=== PATIENT | male | born 1970 | race Caucasian/White ===

== ENCOUNTER 2020-04-09 01:23 | Emergency (ER) | payer OTHER, SELFPAY ==
[2020-04-09 01:33] VITALS: BP 136/83; PULSE 105; RESP 16; TEMP 37.1; O2SAT 96; BMI 31.6
--- NOTE | 2020-04-09 01:39 | XR_ITS ---
EXAMINATION: XR SHOULDER, RIGHT CLINICAL INFORMATION: Fall COMPARISON: None TECHNIQUE: Three views of the right shoulder. FINDINGS: There is no fracture or dislocation. The glenohumeral joint is well aligned. Widening of the acromioclavicular joint is unchanged. The visualized ribs are intact. The visualized lung is clear. XR/XR shoulder RT min 2V IMPRESSION: No acute fracture or malalignment.
--- NOTE | 2020-04-09 01:39 | XR_ITS ---
EXAMINATION: XR FOOT, RIGHT CLINICAL INFORMATION: Fall down 3 stairs COMPARISON: None TECHNIQUE: AP, lateral, and oblique views of the right foot. FINDINGS: There is no fracture or dislocation. Alignment is anatomic. Joint spaces are maintained. Cyst formation at the fifth metatarsal head may be degenerative. Small osteophytes at the first metatarsophalangeal joint. Small heel spurs. XR/XR foot RT min 3V IMPRESSION: No fracture or malalignment. Small heel spurs. Mild degenerative change.
--- NOTE | 2020-04-09 01:39 | XR_ITS ---
EXAMINATION: XR RIBS, RIGHT WITH CHEST XR THORACIC SPINE CLINICAL INFORMATION: Fall. COMPARISON: 01/18/2020 TECHNIQUE: PA view of the chest with 3 additional views of the right ribs. 2 views of the thoracic spine. FINDINGS: RIBS/chest: The lungs are well expanded. No consolidation, edema, or effusion. No pneumothorax. The cardiomediastinal silhouette is within normal limits. Chronic widening at the right acromioclavicular joint is noted. Dedicated right rib radiographs show no fracture or cortical disruption. Alignment is maintained. Thoracic spine: No acute fracture or subluxation. Mild scoliotic curvature. Vertebral body heights are maintained. Disc spaces are maintained. The paravertebral soft tissues are unremarkable. XR/XR ribs RT min 3V w CXR1V IMPRESSION: No fracture or malalignment involving the right ribs or the thoracic spine. Clear lungs.
--- NOTE | 2020-04-09 01:39 | XR_ITS ---
EXAMINATION: XR LUMBOSACRAL SPINE CLINICAL INFORMATION: Fall down 3 stairs COMPARISON: None TECHNIQUE: Three views of the lumbosacral spine. FINDINGS: There is no fracture or subluxation. Vertebral body height and alignment is maintained. Mild disc space narrowing of L4-L5. Remaining disc heights are maintained. The sacroiliac joints are symmetric. The sacrum appears intact. The bowel gas pattern is unremarkable. XR/XR lumbar spine 2-3V IMPRESSION: No fracture or malalignment.
--- NOTE | 2020-04-09 01:42 | ED_ITS ---
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 Patient reports walked outside, and slipped down 3 stairs, denies symptoms prior to fall including CP/SOB, lightheadedness / dizziness. Reports associated nausea now. Denies head trauma, LOC, vomiting, numbness /tingling, weakness, abdominal pain. Denies taking anticoagulation <WILLIAM Shi - Last Filed: 04/09/20 01:54 EDT> MD complaint: fall <WILLIAM Shi Last Filed: 04/09/20 01:54 EDT> Onset (ago): hour(s) <WILLIAM Shi - Last Filed: 04/09/20 01:54 EDT> Related Data Home Medications: Previous Rx's Medication Instructions Recorded acetaminophen [Tylenol Extra 500 mg PO Q6H PRN #20 tab 04/09/20 Strength] cyclobenzaprine 5 mg PO Q8H PRN 5 Days #14 tab 04/09/20 lidocaine [Lidoderm] 1 patch TOPICAL DAILY PRN #30 ea 04/09/20 MDD remove after 12 hours naproxen 500 mg PO BID PRN 10 Days #20 tab 04/09/20 <WILLIAM Shi Last Filed: 04/09/20 01:54 EDT> Allergies/Adverse Reactions: Allergies Allergy/AdvReac Type Severity Reaction Status Date / Time No Known Drug Allergies Allergy Mild NONE Verified 04/09/20 01:38 EDT [NO KNOWN DRUG ALLERGIES] <WILLIAM Shi - Last Filed: 04/09/20 01:54 EDT> Review of Systems Review of Systems: Cardiovascular: No Chest Pain, No SOB Respiratory: No Cough Gastrointestinal: + Nausea, No Vomiting, No Diarrhea, No Constipation, No Abdominal pain Genitourinary:, No Dysuria, No Urinary Frequency, No Hematuria, No Urinary Incontinence, No Urgency, + Flank Pain Musculoskeletal: + joint pain, +Myalgias, No Joint Swelling Skin: No Skin Lesions, No rash Neuro: No Weakness, No Numbness, No Paresthesias, no LOC <WILLIAM Shi - Last Filed: 04/09/20 01:54 EDT> Yes all other systems are reviewed and are negative <WILLIAM Shi - Last Filed: 04/09/20 01:54 EDT> [facility] Past Medical History Attestation statement: The following information was validated with the patient. <WILLIAM Shi - Last Filed: 04/09/20 01:54 EDT> Medical History: Medical History (Updated 04/09/20 @ 01:15 EST by WILLIAM Shi) Patient denies significant medical history <WILLIAM Shi - Last Filed: 04/09/20 01:54 EDT> Social History Social History: Social History Smoked in Last 30 Days: No Use of substances other than those prescribed or required for medical reasons: No Advance Directives: No Advance Directives Information Provided: Yes <WILLIAM Shi - Last Filed: 04/09/20 01:54 EDT> Physical Exam Vital Signs: Vital Signs: Vital Signs Temp Pulse Resp BP Pulse Ox 04/09/20 02:00 98.7 F 88 16 107/83 98 04/09/20 01:33 ED T 98.7 F 105 H 16 136/83 96 Body Mass Index 31.6 <WILLIAM Shi - Last Filed: 04/09/20 01:54 EDT> Vital Signs: Vital Signs Temp Pulse Resp BP Pulse Ox 04/09/20 02:00 98.7 F 88 16 107/83 98 04/09/20 01:33 ED T 98.7 F 105 H 16 136/83 96 Body Mass Index 31.6 <Eileen Beatty MD - Last Filed: 04/09/20 02:40> Const: General: cooperative and healthy appearing <Briana Roberto [place] - Last Filed: 04/09/20 01:54 EDT> Orientation/consciousness: patient oriented x3 <WILLIAM Shi - Last Filed: 04/09/20 01:54 EDT> Limitations: no limitations <WILLIAM Shi Last Filed: 04/09/20 01:54 EDT> HENMT: Head: Yes normal to inspection <Briana Roberto [place] - Last Filed: 04/09/20 01:54 EDT> Ears: hearing grossly normal bilaterally <Briana Roberto [place] - Last Filed: 04/09/20 01:54 EDT> General nose exam: Normal external nose present <Briana Roberto [place] - Last Filed: 04/09/20 01:54 EDT> Face and sinus: Yes normal facial exam <Briana Roberto [facility] Last Filed: 04/09/20 01:54 EDT> Mouth: Normal oral and palatal mucosa present <Briana Roberto [place] - Last Filed: 04/09/20 01:54 EDT> Eyes: General: appearance normal, both eyes and all related structures <Briana Roberto [place] - Last Filed: 04/09/20 01:54 EDT> Pupils: Equal, round and reactive pupils present <WILLIAM Shi - Last Filed: 04/09/20 01:54 EDT> EOM: EOMs intact bilaterally <Briana Roberto [place] - Last Filed: 04/09/20 01:54 EDT> Neck: Other: no midline cervical spinous tenderness. + Right-sided MSK /trapezius ttp <Briana Roberto [place] - Last Filed: 04/09/20 01:54 EDT> Neck: Yes normal visual inspection and Yes full ROM <Briana Roberto [place] - Last Filed: 04/09/20 01:54 EDT> Chest: Other: +ttp to right flank/ lower ribs. No deformity <WILLIAM Shi - Last Filed: 04/09/20 01:54 EDT> Chest palpation & inspection: normal inspection of the chest <WILLIAM Shi - Last Filed: 04/09/20 01:54 EDT> Resp: Effort & Inspection: normal respiratory effort <WILLIAM Shi - Last Filed: 04/09/20 01:54 EDT> Cardio: Rate: regular rate <WILLIAM Shi - Last Filed: 04/09/20 01:54 EDT> Peripheral pulses: Peripheral pulses 2+ throughout <WILLIAM Shi - Last Filed: 04/09/20 01:54 EDT> GI: Inspection: Yes normal to inspection <WILLIAM Shi - Last Filed: 04/09/20 01:54 EDT> Palpation (GI): Soft to palpation, nontender, no guarding and not rigid <WILLIAM Shi - Last Filed: 04/09/20 01:54 EDT> Back/Spine/Pelvis: Other: + upper lumbar ecchymosis/swelling midline with ttp. No appreciable step-offs. <WILLIAM Shi Last Filed: 04/09/20 01:54 EDT> Neuro: General: patient oriented x3, gait normal, tone normal, moves all extremities, no focal motor deficits and CN's II-XI intact bilaterally <WILLIAM Shi - Last Filed: 04/09/20 01:54 EDT> Cranial nerves: Yes Equal, round and reactive pupils present <WILLIAM Shi Last Filed: 04/09/20 01:54 EDT> Gait exam (Neuro): Normal gait present <WILLIAM Shi Last Filed: 04/09/20 01:54 EDT> Extrem: Other: right shoulder with ttp and decreased ROM. No appreciable deformity right heel with mild erythema and ttp <WILLIAM Shi - Last Filed: 04/09/20 01:54 EDT> Course Course Course Narrative: -0200-- ED care transferred to Dr. Beatty pending imaging <WILLIAM Shi Last Filed: 04/09/20 01:54 EDT> Reevaluation(s) Reevaluation #1: I reviewed all imaging results and there were no acute findings to suggest fracture or dislocation. Patient will be discharged to home in stable condition. 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 On exam appears in pain, mildly tachycardic, no evidence of head trauma. No appreciable step-offs. Concern for fractures vs MSK pain. low concern for ICH/cauda equina or cord compression plan: Imaging <WILLIAM Shi Last Filed: 04/09/20 01:54 EDT> Discharge Plan Discharge Clinical Impression: Fall <WILLIAM Shi Last Filed: 04/09/20 01:54 EDT> Patient Disposition: Home, Self-Care <WILLIAM Shi Last Filed: 04/09/20 01:54 EDT> Additional Instructions: Flexeril is a muscle relaxer, take at night as it makes you drowsy, do not drive, drink alcohol, or operate machinery while taking it Naproxen as an anti-inflammatory / pain medication, take with food Lidoderm patches are numbing patches, apply to painful area In addition take Tylenol at home If symptoms persist or worsen, pain becomes unbearable, you developed urinary retention or incontinence, or weakness return to the ED <WILLIAM Shi Last Filed: 04/09/20 01:54 EDT> Prescriptions: New acetaminophen [Tylenol Extra Strength] 500 mg tablet 500 mg PO Q6H PRN (Reason: pain or fever) Qty: 20 RF: 0 lidocaine [Lidoderm] 5 % adhesive patch,medicated 1 patch topical DAILY MDD remove after 12 hours PRN (Reason: pain) Qty: 30 RF: 0 naproxen 500 mg tablet 500 mg PO BID PRN (Reason: pain) 10 Days Qty: 20 RF: 0 cyclobenzaprine 5 mg tablet 5 mg PO Q8H PRN (Reason: pain (scale score 7-10)) 5 Days Qty: 14 RF: 0 <WILLIAM Shi Last Filed: 04/09/20 01:54 EDT> Referrals: Jerson Monroy MD [Primary Care Provider] - 3 days <WILLIAM Shi Last Filed: 04/09/20 01:54 EDT>
--- NOTE | 2020-04-09 01:47 | XR_ITS ---
EXAMINATION: XR RIBS, RIGHT WITH CHEST XR THORACIC SPINE CLINICAL INFORMATION: Fall. COMPARISON: 01/18/2020 TECHNIQUE: PA view of the chest with 3 additional views of the right ribs. 2 views of the thoracic spine. FINDINGS: RIBS/chest: The lungs are well expanded. No consolidation, edema, or effusion. No pneumothorax. The cardiomediastinal silhouette is within normal limits. Chronic widening at the right acromioclavicular joint is noted. Dedicated right rib radiographs show no fracture or cortical disruption. Alignment is maintained. Thoracic spine: No acute fracture or subluxation. Mild scoliotic curvature. Vertebral body heights are maintained. Disc spaces are maintained. The paravertebral soft tissues are unremarkable. XR/XR thoracic spine 2V IMPRESSION: No fracture or malalignment involving the right ribs or the thoracic spine. Clear lungs.
[2020-04-09] MEDS: Ibuprofen 800 MG TABLET PO (01:57)
[2020-04-09] MEDS: Acetaminophen 325 MG TABLET 650 MG PO (01:58)
[2020-04-09 02:00] VITALS: BP 107/83; PULSE 88; RESP 16; TEMP 37.1; O2SAT 98
--- NOTE | 2020-04-09 02:36 | PC.NURSE ---
pt reports no to little change in pain, denies need for further medication. given ice packs.
== END 2020-04-09 03:01 | disposition home or self-care (01) ==
PROVIDERS: Emergency Provider Student in an Organized Health Care Education/Training Program; PCP Family Medicine
DX: S39.92XA Unspecified injury of lower back, initial encounter (principal); M54.5 Low back pain; R07.81 Pleurodynia; W10.9XXA Fall (on) (from) unspecified stairs and steps, initial encounter; Y93.01 Activity, walking, marching and hiking; Y92.9 Unspecified place or not applicable; Y99.9 Unspecified external cause status
CPT/HCPCS: 71101; 72070; 72100; 73030; 73630; 99283; 99284